=== PATIENT | male | born 1980 | race Two or more races ===

== ENCOUNTER 2020-08-01 17:24 | Emergency (ER) | payer SELFPAY ==
[~2020-08-01] VITALS: Ht 180.3 cm; Wt 86.2 kg
[2020-08-01 18:15] VITALS: BP 153/78
[2020-08-01] MEDS ORDERED: FLUORESCEIN SOD OPTH TEST STRIP LEFTEYE ONE (18:45)
[2020-08-01] MEDS ORDERED: TETRACAINE HCL 0.5% OPTH(EYE) SOLN 4ML LEFTEYE ONE (18:45)
== END 2020-08-01 19:32 | disposition left against medical advice (07) ==
LOC: ER 17:24
DX: H57.89 Other specified disorders of eye and adnexa (principal); Z53.21 Procedure and treatment not carried out due to patient leaving prior to being seen by health care provider